=== PATIENT | male | born 1995 | race Two or more races ===

== ENCOUNTER 2024-04-12 16:44 | Emergency (ER) | payer BC | END 2024-04-12 17:57 | disposition home or self-care (01) | LOC: JD.ED 16:44 | DX: S61.252A Open bite of right middle finger without damage to nail, initial encounter (principal); S61.052A Open bite of left thumb without damage to nail, initial encounter; Z79.899 Other long term (current) drug therapy; W50.3XXA Accidental bite by another person, initial encounter | CPT/HCPCS: 99282 ==